=== PATIENT | female | born 1960 | race Caucasian/White ===

== ENCOUNTER 2025-05-03 10:11 | Emergency (ER) | payer BC ==
[~2025-05-03] VITALS: Ht 157.5 cm; Wt 96.6 kg
[2025-05-03 10:31] VITALS: TEMP 98
[2025-05-03] MEDS ORDERED: BUPROPION XL150 MG PO (10:39)
[2025-05-03] MEDS ORDERED: IRBESARTAN150 MG PO (10:39)
[2025-05-03] MEDS ORDERED: AMLODIPINE BESYL5 MG PO (10:39)
[2025-05-03] MEDS ORDERED: OMEPRAZOLE20 MG PO (10:39)
[2025-05-03 12:30] VITALS: PULSE 78; RESP 18; O2SAT 98
== END 2025-05-03 12:34 | disposition home or self-care (01) ==
LOC: ER 10:14
DX: S00.83XA Contusion of other part of head, initial encounter (principal); S50.01XA Contusion of right elbow, initial encounter; W01.0XXA Fall on same level from slipping, tripping and stumbling without subsequent striking against object, initial encounter; Y93.01 Activity, walking, marching and hiking; Y92.89 Other specified places as the place of occurrence of the external cause; I10 Essential (primary) hypertension; F41.9 Anxiety disorder, unspecified; F32.A Depression, unspecified
CPT/HCPCS: 70450; 72125; 99283